=== PATIENT | male | born 1950 | race Caucasian/White ===

== ENCOUNTER → 2018-05-06 | Outpatient (CLI) | payer MEDICARE | END | disposition home or self-care (01) | LOC: PCVCCLINIC 13:59 | PROVIDERS: ATTEND Internal Medicine | DX: I25.119 Atherosclerotic heart disease of native coronary artery with unspecified angina pectoris (principal); I10 Essential (primary) hypertension; E78.5 Hyperlipidemia, unspecified; Z79.82 Long term (current) use of aspirin | CPT/HCPCS: 93005; G0463 ==

== ENCOUNTER → 2018-06-09 | Outpatient (CLI) | payer MEDICARE ==
--- NOTE | 2018-06-09 15:44 | PCVCIMAG ---
APPROVED REPORT Study performed: 06/09/2018 13:03:29 Exam: Stress Echocardiogram Indication: Hypertension, Hyperlipidemia Patient Location: Echo lab Stress Nurse: Mirian Wilkins RN Status: routine Ht: 5 ft 11 in HR: 75 bpm BP: 128/78 mmHg Rhythm: NSR Medical History Medical History: Hyperlipidemia, HTN Procedure The patient underwent an Exercise Stress Test using the Franko Protocol. Blood pressure, heart rate, and EKG were monitored. An Echocardiogram was performed by global position system technician in four stages in quad fashion. At peak stress, four selected images were obtained and placed side by side with resting images for comparison. Stress Test Details Stress Test: Exercise stress testing was performed using a Franko protocol. HR Resting HR: 73 bpmMax Heart Rate (APMHR): 154 bpm Max HR Achieved: 190 bpmTarget HR (85% APMHR): 130 bpm % of APMHR: 123 HR response to stress: Normal HR response to stress BP Resting BP: 128/78 mmHg Max BP: 160/84 mmHg ECG Resting ECG: Sinus Rhythm Stress ECG: Sinus Rhythm ST Change: Normal Maximum ST Deviation: 0 mm Arrhythmia: APC's Recovery ECG: Sinus Rhythm Recovery ST Change: Normal Recovery ST Deviation: 0 mm Recovery Arrhythmia: APC, atrial couplets and triplets; rare PVC Clinical Reason for Termination: Maximal effort Exercise duration: 12 min 30 sec Highest Stage Achieved: Stage 5: 5.0 mph at 18% grade. Exercise capacity: 15.30 METs Overall Exercise Capacity for Age: Good Angina Score: None Stress ECG Conclusion Clinical: Non-ischemic ECG: Non-ischemic Nguyen Treadmill Score is 12.0 which is Low risk. Pre-Stress Echo The resting Echocardiogram showed normal left ventricular contractility with an estimated Ejection Fraction of about 55-60%. Normal wall motion in all segments on baseline images. Post-Stress Echo The stress Echocardiogram showed normal left ventricular contractility with an estimated Ejection Fraction of about 60-65%. Normal augmentation of wall motion in all segments on post stress images. Conclusion Clinical Response: Non-ischemic Exercise Capacity: Superior Stress ECG Response: Non-ischemic Stress Echo Images: Non-ischemic The left ventricle is normal in size and wall thickness in both the rest and stress images. Normal stress echocardiogram with maximal exercise stress. Other Information Study Quality: Good <Conclusion> The left ventricle is normal in size and wall thickness in both the rest and stress images. Normal stress echocardiogram with maximal exercise stress.
== END | disposition home or self-care (01) ==
LOC: PCVCIMAG 13:08
PROVIDERS: ATTEND Internal Medicine
DX: I25.10 Atherosclerotic heart disease of native coronary artery without angina pectoris (principal); I10 Essential (primary) hypertension
CPT/HCPCS: 93325; 93351